=== PATIENT | female | born 1945 | race Hispanic/Latino ===

== ENCOUNTER 2017-11-23 12:41 | Outpatient (CLI) | payer MEDICARE ==
--- NOTE | 2017-11-24 12:07 | Magnetic Resonance Report ---
MRI of the chest without contrast. History: Myasthenia gravis. Procedure: A multiplanar multiphase study was performed without contrast. The axial images are of satisfactory quality. The coronal images are nondiagnostic due to motion artifact. However there is sufficient diagnostic information on the axial sequences. Findings: There is no evidence of thymoma or other anterior mediastinal mass. There is normal distribution of fat within the mediastinum. No adenopathy is seen. Normal flow-voids are seen in the vascular structures. There is no pleural fluid. No lung masses are identified. The bony structures of the thorax appear normal. Impression: Normal MRI of the chest with above-described technical limitations. There is no evidence of thymoma.
== END 2017-11-23 12:42 | disposition home or self-care (01) ==
LOC: SPVIMAG 12:41
PROVIDERS: ATTEND Specialist
DX: G70.00 Myasthenia gravis without (acute) exacerbation (principal)
CPT/HCPCS: 71550

== ENCOUNTER 2018-03-17 13:44 | Outpatient (CLI) | payer MEDICARE ==
[2018-03-17 13:53] LABS: Hematocrit 40.7 % (30.3-42.9); Hemoglobin 13.7 gm/dl (10.1-14.3); Mean Corpuscular HGB Conc 34 % (30-34); Mean Corpuscular Hemoglobin 32 pg (28-32); Mean Corpuscular Volume 94 fl (79-97); Platelet Count 237 K/mm3 (140-440); Red Blood Count 4.34 M/mm3 (3.65-5.03); Red Cell Distribution Width 13.1 % (13.2-15.2)
[2018-03-17 22:15] LABS: Basophils # (Auto) 0.3 K/mm3 (0.0-0.1); Basophils % (Auto) 2.7 % (0.0-1.8); Eosinophils % (Auto) 9.9 % (0.0-4.3); Hematocrit 40.3 % (30.3-42.9); Hemoglobin 13.8 gm/dl (10.1-14.3); Lymphocytes # (Auto) 2.2 K/mm3 (1.2-5.4); Mean Corpuscular HGB Conc 34 % (30-34); Mean Corpuscular Hemoglobin 32 pg (28-32); Mean Corpuscular Volume 94 fl (79-97); Monocytes # (Auto) 0.6 K/mm3 (0.0-0.8); Monocytes % (Auto) 6.4 % (0.0-7.3); Platelet Count 230 K/mm3 (140-440); Red Cell Distribution Width 13.2 % (13.2-15.2)
== END 2018-03-17 13:45 | disposition home or self-care (01) ==
LOC: LAB 13:44
PROVIDERS: ATTEND Specialist
DX: G70.00 Myasthenia gravis without (acute) exacerbation (principal)
CPT/HCPCS: 36415; 85025; 85027

== ENCOUNTER 2018-04-19 13:48 | Outpatient (CLI) | payer MEDICARE ==
[2018-04-19 14:05] LABS: Hematocrit 40.1 % (30.3-42.9); Mean Corpuscular HGB Conc 32 % (30-34); Mean Corpuscular Hemoglobin 30 pg (28-32); Mean Corpuscular Volume 93 fl (79-97); Platelet Count 294 K/mm3 (140-440); Red Blood Count 4.33 M/mm3 (3.65-5.03); Red Cell Distribution Width 12.9 % (13.2-15.2)
== END 2018-04-19 13:49 | disposition home or self-care (01) ==
LOC: LAB 13:48
PROVIDERS: ATTEND Specialist
DX: G70.00 Myasthenia gravis without (acute) exacerbation (principal)
CPT/HCPCS: 36415; 85027